=== PATIENT | female | born 1950 | race Caucasian/White ===

== ENCOUNTER 2018-09-12 13:36 | Emergency (ER) | payer OTHER ==
[~2018-09-12] VITALS: Ht 165.1 cm; Wt 57.2 kg
[2018-09-12] MEDS ORDERED: AMOXICILLIN875 MG PO (14:06)
== END 2018-09-12 15:57 | disposition home or self-care (01) ==
LOC: ER 13:36
DX: L02.211 Cutaneous abscess of abdominal wall (principal); L02.415 Cutaneous abscess of right lower limb; L02.31 Cutaneous abscess of buttock